=== PATIENT | female | born 1995 | race Asian ===

== ENCOUNTER 2017-03-24 22:06 | Emergency (ER) | payer BC ==
[~2017-03-24] VITALS: Ht 154.9 cm; Wt 52.2 kg
[2017-03-25 00:23] VITALS: BP 109/66
== END 2017-03-25 00:23 | disposition home or self-care (01) ==
LOC: ED 22:06
DX: O46.93 Antepartum hemorrhage, unspecified, third trimester (principal); K59.00 Constipation, unspecified; Z3A.37 37 weeks gestation of pregnancy